=== PATIENT | female | born 1990 | race Caucasian/White ===

== ENCOUNTER 2022-01-10 09:39 | Emergency (ER) | payer OTHER ==
[2022-01-10] MEDS ORDERED: Ketorolac 30 MG/ML SDV IM ONE (10:19)
== END 2022-01-10 12:33 | disposition home or self-care (01) ==
LOC: JP.ED 09:39
DX: S93.401A Sprain of unspecified ligament of right ankle, initial encounter (principal); Z86.16 Personal history of COVID-19; X50.1XXA Overexertion from prolonged static or awkward postures, initial encounter; Y93.39 Activity, other involving climbing, rappelling and jumping off
CPT/HCPCS: 73564; 73610; 96372; 99283; J1885